=== PATIENT | male | born 1980 | race Caucasian/White ===

== ENCOUNTER 2017-09-05 17:03 | Emergency (ER) | payer OTHER ==
[~2017-09-05] VITALS: Ht 175.3 cm; Wt 68.0 kg
[~2017-09-05 17:03] MED LIST: ADV250/50 INH; LEVO750T25 PO; LIPA249C7 PO; MOMR NS; SAL50R IH; [UNRECOGNIZED DRUG - CODE] INH; [UNRECOGNIZED DRUG - CODE] PO; [UNRECOGNIZED DRUG - OTHER]
--- NOTE | 2017-09-05 17:09 | ER Report ---
History and Physical Time Seen By MD: 17:07 (ARACELY GUTIERREZ MD) HPI/ROS CHIEF COMPLAINT: right sided chest wall pain HISTORY OF PRESENT ILLNESS: Patient is a 37-year-old male with history of cystic fibrosis who presents to emergency department with sudden onset of right- sided chest wall pain. Patient states that he was doing some reading leaning forward when he returned to a reclining position he felt discomfort to the right chest wall. The pain is worse with motion and is reproducible to palpation. He denies any shortness of breath. Patient does have a pulse ox machine at home which showed a pulse rate of 92 bpm and a pulse ox of 92%. REVIEW OF SYSTEMS: Constitutional: No fever, no chills. Eyes: No discharge. ENT: No sore throat. Cardiovascular: Right-sided chest wall pain Respiratory: No cough, no shortness of breath. Gastrointestinal: No abdominal pain, no vomiting. Genitourinary: No hematuria. Musculoskeletal: No back pain. Skin: No rashes. Neurological: No headache. (ARACELY GUTIERREZ MD) Allergies: Coded Allergies: No Known Drug Allergies (Verified , 09/05/17) Home Meds Active Scripts Ciprofloxacin Hcl (CIPROFLOXACIN HCL) 750 Mg Tablet, 750 MG PO Q12H, #20 TAB 0 Refills Prov:UZAIR RHODES MD 09/05/17 Reported Medications Fluticasone Prop 50 Mcg Ns (FLONASE 50 MCG NS) 16 Gm Alborn.susp, 1 SPRAY NS BID , BOT 09/05/17 [Pulmizyme] No Conflict Check, 0 Refills 04/08/10 Salmeterol Xinaf/Fluticasone (Advair 250/50 Diskus) 250 Mcg/50 Mcg Inh, 1 PUFF INH BID, 0 Refills 1 PUFF 04/08/10 Amylase/Lipase/Protease (Creon 10 Capsule Ec) 249 Mg Capsule.dr, 249 MG PO WITH FOOD, 0 Refills 04/08/10 Tobramycin/Sodium Chloride (Bobby 300 Mg/5 Ml Solution) 300 Mg/5 Ml Ampul.neb., 300 MG INH, 0 Refills 04/08/10 Discontinued Reported Medications Levofloxacin (Levaquin) 750 Mg Tablet, 750 MG PO QDAY, #10 0 Refills 04/08/10 Mometasone Furoate (Nasonex) 17 Gm Alborn, 1 SPRAY NS BID, 0 Refills 04/08/10 Past Medical/Surgical History Past medical history significant for asthma, history of cystic fibrosis (ARACELY GUTIERREZ MD) Hx Substance Use Disorder: No Hx Alcohol Use: No (ARACELY GUTIERREZ MD) Constitutional Vital Sign - Last 24 Hours 09/05/17 09/05/17 09/05/17 09/05/17 17:11 17:30 18:00 18:00 Temp 98.8 Pulse 96 87 87 Resp 20 B/P (MAP) 136/91 131/90 (104) 134/75 (94) 134/75 (94) Pulse Ox 96 95 90 90 O2 Delivery Room Air 09/05/17 09/05/17 09/05/17 09/05/17 18:30 18:30 18:45 19:00 Pulse 91 91 91 97 B/P (MAP) 132/92 (105) 132/92 (105) 150/84 (106) Pulse Ox 91 91 92 (UZAIR RHODES MD) Physical Exam General Appearance: The patient is alert, has no immediate need for airway protection and no signs of toxicity. Eyes: Pupils equal and round no pallor or injection. ENT, Mouth: Mucous membranes are moist. Respiratory: There are no retractions, lungs are clear to auscultation. Cardiovascular: Regular rate and rhythm. [ ] Gastrointestinal: Abdomen is soft and non tender, no masses, bowel sounds normal. Neurological: Awake alert Skin: Warm and dry, no rashes. Musculoskeletal: Neck is supple non tender. Extremities are nontender, nonswollen and have full range of motion. (ARACELY GUTIERREZ MD) Medical Decision Making Data Points Result Diagram: 09/05/17 1710 09/05/17 1710 Laboratory Hematology Test 09/05/17 17:10 Red Blood Count 5.98 M/uL (4.00-5.60) Mean Corpuscular Volume 85.5 fL (80.0-96.0) Mean Corpuscular Hemoglobin 28.0 pg (26.0-33.0) Mean Corpuscular Hemoglobin Concent 32.8 g/dL (32.0-36.0) Red Cell Distribution Width 13.9 % (11.5-14.5) Mean Platelet Volume 8.2 fL (7.2-11.1) Neutrophils (%) (Auto) 79.8 % (39.4-72.5) Lymphocytes (%) (Auto) 10.6 % (17.6-49.6) Monocytes (%) (Auto) 8.1 % (4.1-12.4) Eosinophils (%) (Auto) 0.9 % (0.4-6.7) Basophils (%) (Auto) 0.6 % (0.3-1.4) Nucleated RBC Relative Count (auto) 0.0 /100WBC Neutrophils # (Auto) 16.9 K/uL (2.0-7.4) Lymphocytes # (Auto) 2.2 K/uL (1.3-3.6) Monocytes # (Auto) 1.7 K/uL (0.3-1.0) Eosinophils # (Auto) 0.2 K/uL (0.0-0.5) Basophils # (Auto) 0.1 K/uL (0.0-0.1) Nucleated RBC Absolute Count (auto) 0.01 K/uL Peripheral Blood Smear Yes Y/N Sodium Level 138 mmol/L (137-145) Potassium Level 4.1 mmol/L (3.5-5.0) Chloride Level 97 mmol/L (98-107) Carbon Dioxide Level 26 mmol/L (22-30) Blood Urea Nitrogen 17 mg/dl (9-21) Creatinine 1.00 mg/dl (0.66-1.25) Glomerular Filtration Rate Calc > 60.0 Random Glucose 106 mg/dl (75-110) Calcium Level 9.2 mg/dl (8.4-10.2) Total Bilirubin 0.3 mg/dl (0.2-1.3) Aspartate Amino Transf (AST/SGOT) 24 U/L (0-35) Alanine Aminotransferase (ALT/SGPT) 30 U/L (0-56) Alkaline Phosphatase 77 U/L (0-126) Total Protein 8.8 gm/dl (6.3-8.2) Albumin 4.4 g/dl (3.5-5.0) Chemistry Test 09/05/17 17:10 White Blood Count 21.2 k/uL (4.5-11.0) Red Blood Count 5.98 M/uL (4.00-5.60) Hemoglobin 16.8 g/dL (14.0-18.0) Hematocrit 51.1 % (42.0-52.0) Mean Corpuscular Volume 85.5 fL (80.0-96.0) Mean Corpuscular Hemoglobin 28.0 pg (26.0-33.0) Mean Corpuscular Hemoglobin Concent 32.8 g/dL (32.0-36.0) Red Cell Distribution Width 13.9 % (11.5-14.5) Platelet Count 556 K/uL (150-450) Mean Platelet Volume 8.2 fL (7.2-11.1) Neutrophils (%) (Auto) 79.8 % (39.4-72.5) Lymphocytes (%) (Auto) 10.6 % (17.6-49.6) Monocytes (%) (Auto) 8.1 % (4.1-12.4) Eosinophils (%) (Auto) 0.9 % (0.4-6.7) Basophils (%) (Auto) 0.6 % (0.3-1.4) Nucleated RBC Relative Count (auto) 0.0 /100WBC Neutrophils # (Auto) 16.9 K/uL (2.0-7.4) Lymphocytes # (Auto) 2.2 K/uL (1.3-3.6) Monocytes # (Auto) 1.7 K/uL (0.3-1.0) Eosinophils # (Auto) 0.2 K/uL (0.0-0.5) Basophils # (Auto) 0.1 K/uL (0.0-0.1) Nucleated RBC Absolute Count (auto) 0.01 K/uL Peripheral Blood Smear Yes Y/N Glomerular Filtration Rate Calc > 60.0 Calcium Level 9.2 mg/dl (8.4-10.2) Total Bilirubin 0.3 mg/dl (0.2-1.3) Aspartate Amino Transf (AST/SGOT) 24 U/L (0-35) Alanine Aminotransferase (ALT/SGPT) 30 U/L (0-56) Alkaline Phosphatase 77 U/L (0-126) Total Protein 8.8 gm/dl (6.3-8.2) Albumin 4.4 g/dl (3.5-5.0) (UZAIR RHODES MD) EKG/Imaging Imaging 2 VIEWS CHEST INDICATION: Right-sided chest pain. COMPARISON: 04/08/2010. FINDINGS: Cardiomediastinal silhouette and pulmonary vessels within normal limits. There are faint patchy interstitial changes seen in both lungs. The appearance of which are not significantly changed from the previous examination. This is most likely due to chronic interstitial disease. There may be minimal progression. There is no focal consolidation. There is no pneumothorax or pleural effusion. No nodule. Upper abdomen is unremarkable. No acute bony abnormality. IMPRESSION: 1. Underlying chronic interstitial changes which are mildly progressed. No focal consolidation. Report Dictated By: Simon Garduno at 09/05/2017 6:25 PM RIBS RIGHT INDICATION: Right chest pain.. COMPARISON: None Available. FINDINGS: 2 views of the right ribs show no discrete or displaced fracture. No bony lesion. The lungs show chronic interstitial changes as described on chest x -ray. Soft tissues are unremarkable otherwise. IMPRESSION: Normal right rib abnormality. Report Dictated By: Simon Garduno at 09/05/2017 6:28 PM (UZAIR RHODES MD) ED Course/Re-evaluation ED Course 09/05/2017 5:14:48 pm At this time will be to place an IV perform a chest x-ray and right-sided rib series. Toradol for pain Decision to Disposition Date: Sep 05, 2017 Decision to Disposition Time: 19:00 (ARACELY GUTIERREZ MD) ED Course Discussed this patient with Dr. Gutierrez at shift change and assumed care of the patient. Imaging done and did show some increased in the chronic interstitial changes. Cannot entirely rule out infectious process given his elevated white blood cell count. Will start Cipro 750mg twice a day and have him follow-up with his Cystic Fibrosis specialists. Ibuprofen to help with pain as the Toradol has significantly improved his pain. Decision to Disposition Date: Sep 05, 2017 Decision to Disposition Time: 19:10 (UZAIR RHODES MD) Depart Departure Latest Vital Signs Vital Signs Date Time Temp Pulse Resp B/P (MAP) Pulse Ox O2 Delivery O2 Flow Rate FiO2 09/05/17 19:00 97 150/84 (106) 09/05/17 18:45 92 09/05/17 17:11 98.8 20 Room Air (UZAIR RHODES MD) Impression: Primary Impression: Chest pain Additional Impression: Pneumonitis Condition: Improved Disposition: HOME OR SELF-CARE New Scripts Ciprofloxacin Hcl (CIPROFLOXACIN HCL) 750 Mg Tablet 750 MG PO Q12H, #20 TAB 0 Refills Prov: UZAIR RHODES MD 09/05/17 Patient Instructions: Chest Pain (ED), Pneumonitis (ED) Additional Instructions: Start Cipro 750mg twice a day. Take Ibuprofen 200mg over the counter tablets, take 4 tablets every 8 hours as needed for pain. Call and arrange follow-up with your regular doctors. Rest and increase fluid intake over the next few days. Problem Qualifiers Primary Impression: Chest pain Chest pain type: other chest pain Qualified Codes: R07.89 - Other chest pain ARACELY GUTIERREZ MD Sep 05, 2017 17:09 UZAIR RHODES MD Sep 05, 2017 18:24
[2017-09-05] MEDS ORDERED: FLUT16SP19 NS (17:11)
[2017-09-05] MEDS ORDERED: KETOROLAC 15 MG/ML VIAL IVP ONE (17:15)
[2017-09-05 17:35] LABS: PLATELET COUNT, AUTOMATED 556 K/uL (150-450)
--- NOTE | 2017-09-05 17:35 | EKG ---
FACILITY: [facility] - [place] PATIENT NAME: ALEXIS NG : [id number] MR: [id number] V: [id number] EXAM DATE: ORDERING PHYSICIAN: ARACELY MENARD TECHNOLOGIST: Test Reason : Blood Pressure : / mmHG Vent. Rate : 094 BPM Atrial Rate : 094 BPM P-R Int : 130 ms QRS Dur : 076 ms QT Int : 358 ms P-R-T Axes : 065 068 060 degrees QTc Int : 447 ms Normal sinus rhythm Normal ECG No previous ECGs available Confirmed by SHAI ARDON ([id number]) on 09/05/2017 7:18:54 PM Referred By: Confirmed By:SHAI ARDON
--- NOTE | 2017-09-05 18:31 | RADIOLOGY IMAGING REPORT ---
FACILITY: [facility] [place] PATIENT NAME: Torres Mancilla : 1980 MR: [id number] V: [id number] EXAM DATE: ORDERING PHYSICIAN: ARACELY MENARD TECHNOLOGIST: Location: [facility] Patient: Torres Mancilla : 1980 Visit/Account:[id number] Date of Sevice: 09/05/2017 2 VIEWS CHEST INDICATION: Right-sided chest pain. COMPARISON: 04/08/2010. FINDINGS: Cardiomediastinal silhouette and pulmonary vessels within normal limits. There are faint patchy interstitial changes seen in both lungs. The appearance of which are not signi ficantly changed from the previous examination. This is most likely due to chronic interstitial disea se. There may be minimal progression. There is no focal consolidation. There is no pneumothorax or pleural effusion. No nodule. Upper abdomen is unremarkable. No acute bony abnormality. IMPRESSION: 1. Underlying chronic interstitial changes which are mildly progressed. No focal consolidation. Report Dictated By: Simon Garduno at 09/05/2017 6:25 PM Report E-Signed By: Simon Garduno at 09/05/2017 6:28 PM WSN:[id number]
--- NOTE | 2017-09-05 18:35 | RADIOLOGY IMAGING REPORT ---
FACILITY: [facility] - [place], [place] PATIENT NAME: Torres Mancilla : 1980 MR: [id number] V: [id number] EXAM DATE: ORDERING PHYSICIAN: ARACELY MENARD TECHNOLOGIST: Location: [facility] [place] Patient: Torres Mancilla : 1980 Visit/Account:[id number] Date of Sevice: 09/05/2017 RIBS RIGHT INDICATION: Right chest pain.. COMPARISON: None Available. FINDINGS: 2 views of the right ribs show no discrete or displaced fracture. No bony lesion. The lungs show chronic interstitial changes as described on chest x-ray. Soft tissues are unremarkable otherwi se. IMPRESSION: Normal right rib abnormality. Report Dictated By: Simon Garduno at 09/05/2017 6:28 PM Report E-Signed By: Simon Garduno at 09/05/2017 6:30 PM WSN:[id number]
[2017-09-05] MEDS ORDERED: CIPROFLOXACIN 500 MG TAB PO ONE (19:10)
[2017-09-05] MEDS ORDERED: CIPR750T84 PO (19:12)
[2017-09-05 19:15] VITALS: BP 127/97
== END 2017-09-05 19:19 | disposition home or self-care (01) ==
LOC: ER 17:06
DX: J18.9 Pneumonia, unspecified organism (principal)
CPT/HCPCS: 71046; 71100; 85025; 93005; 96374; 99284; J1885; 82040; 82247; 82310; 82374; 82435; 82565; 82947; 84075; 84132; 84155; 84295; 84450; 84460; 84520

== ENCOUNTER 2017-10-23 09:00 | Outpatient (RCR) | payer OTHER ==
--- NOTE | 2017-08-03 11:27 | SPEECH INITIAL EVALUATION ---
VOCAL PRODUCTION and DYSPHAGIA EVALUATION REPORT NAME: Sunil Mancilla EVALUATION DATE: 07-30-17 DATE OF : 1980, 37yrs DIAGNOSIS: Dysphagia and Speech/Vocal deficits EXAMINER: Marie Vizcarra MS, [facility]-[employer] PHYSICIAN: Shaina Todd M.D. History The patient is a 37 year old male seen by speech pathology for dysphagia and voice assessment. 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 He is now experiencing symptoms of dysphagia and vocal deficits with speech. Past medical history is positive for cystic fibrosis. VOICE Breath Support: Below expect for patients age -Maximum Phonation Time: average of 4 seconds for sustained vowel production with mid/high/low pitch Pitch: Pt participated in vocal testing that included pitch variation. Pitch variation was adequate and well controlled with audible variation between low/ mid/high productions. Vocal Quality: Mildly hoarse Volume: Volume largely functional with the patient able to demonstrate adequate modification of functional volume in quiet and loud settings . Average of 70db as well as low and mid volume variations with consistent vocal quality. S/Z Ratio: WNL Self-Perceptual Measures and Functional Communication Voice Handicap Index (VHI) During the evaluation, Mr. Fajardo completed a VHI that is based on a 4pt scale to indicate vocal changes and the effects of these changes on ones life. The VHI is composed of three categories; physical, functional, and emotional. A score of 18 or more reflects a significant impact on quality of life. Results: Physical= 19 Functional=12 Emotional=13 Total score=44 On a scale of Normal to Severe, Mr Mancilla scored his voice as Moderate Handicap on the VHI on the day of the evaluation and reported that his is a typical day of vocal function. The patient was most concerned with his voice sounding creaky and dry, people having difficulty understanding him, he uses a great deal of effort to speak, and my voice problem makes me feel handicapped. SPEECH Left lingual numbness and overall lingual discoordination during speech result in deficits in vowel and consonant production including speech sound distortion. No omissions or substitutions were recorded. The patient reports he is very aware of these speech sound distortions and participates less in verbal communication with others as he feels embarrassed of his speech. Pt was stimulable for decreased distortion of speech sounds with sounds in isolation. Sounds at word level were less stimulable as were sounds in conversation. Specific speech sounds noted to have errors include /sh/s/l/o/k/ t /d/t/. FUNCTIONAL COMMUNICATION The patients overall functional communication shows moderate deficits 2nd to voice and speech deficits. His functional communication is impacted on a daily basis at home, work and in the community. DYSPHAGIA Oral The patient is on a dysphagia 2 diet per recommendation following MBS. Post operative oral dysphagia symptoms persist including - L side posterior lingual numbness -L side lingual deviation -Lingual discoordination for speech and swallow -Pain with mastication L side from jaw to shoulder. Pt reports he was told this is d/t post operative nerve damage. Pain reported as 3 of 10 today but pt reports it is frequently 5 or 6 -Modified Diet: Pt compensates for oral dysphagia with small bites, soft foods, chopped foods - The patient reports no change to his sense of taste Pharyngeal The patient reports moderate s/s of pharyngeal dysphagia. A previous MBS showed aspiration of thin liquids and a nectar thick liquid and dysphagia 2 diet was recommended at that time. He reports his dysphagia symptoms have improved somewhat and he now uses thickened liquids only sometimes. He uses positional compensatory techniques with liquids swallow to reduce risk including head tilt to the left. Pt demonstrated this technique without cueing and confirmed that he uses it regularly. The patient . Symptoms include: -delayed initiation of swallow -witnessed aspiration of liquids during MBS -he demonstrates a strong cough and reports a good reflexive cough when aspiration occurs Verbal and written education provided at time of assessment for safe swallow precautions as well as physiology/anatomy of health or dysphasic swallow. Food Liquid Trials Liquids: pass with compensatory techniques as described above Foods: pass with compensatory techniques as described above SUMMARY Mr. Mancilla presents with deficits in voice production and articulation as well as oral and pharyngeal stage dysphagia. Speech therapy services are recommended and are medically necessary for this patient to return to prior level of functioning with oral communication and to decrease risk of aspiration , malnutrition, dehydration 2nd to oral and pharyngeal stage dysphagia. Please see above for more detail. Recommendations ST 2wk12 to address above described concerns. Prognisis: Very Good. Pt general health is good, he is young and is motivated to return to [facility] POC Short Term Goals 1. Pt will report a score of between 0-17 on the Voice Handicapp Index (VHI) to demonstrate no or mild vocal handicap and a low impact on daily life. Current score is 44. 2. The patient will demonstrate no aspiration of thin liquids on a repeat MBS 3. The patient will return to [facility] with solids and liquids Mattress Specialist Goal The patient will return to prior level of functional communication and diet Thank you for this referral. Please call [phone] Marei Vizcarra M.S., CCC-COAL GETTER Physician Signature Date MTDD
--- NOTE | 2017-09-03 15:02 | SLP PLAN OF CARE ---
Progress Note and POC Update NAME: Sunil Mancilla EVALUATION DATE: 09-02-17 DATE OF : 1980, 37yrs DIAGNOSIS: Dysphagia and Speech/Vocal deficits EXAMINER: Marie Vizcarra MS, [facility]-[employer] PHYSICIAN: Shaina Todd M.D. The patient attended initial speech therapy evaluation on 07-30-17. ST 2wk12 was recommended at that time. The patient did not return to ST for over a month until 09-02-17 as he was awaiting approval of coverage from his medical insurance carrier. The patient reports some improvement to voice and swallow since initial eval including estimated return of vocal function to 75% of plof. Pt completed a maximum phonation task with an average of 4 seconds (norm=25-35 seconds) which demonstrates no change from initial eval. He is no longer using liquid thickener though he continues to experience s/s of aspiration (excessive coughing, SOB) at least 1x/meal. Pt completed a modified version of the Communication Confidence Rating Scale for Aphasia (CCRSA). This is a 6 question patient rated numeric scale to assist with assessing a patients confidence in their communicative ability. His lowest rated scores are as follows: "How confident are you about your ability to speak on the telephone?" (60/100) and "How confident are you that people understand you when you talk?"(50/100). Updated POC Short term goals: 1. Pt will report a score of between 0-17 on the Voice Handicapp Index (VHI) to demonstrate no or mild vocal handicap and a low impact on daily life. Current score is 44. 2. The patient will demonstrate no aspiration of thin liquids on a repeat MBS 3. The patient will return to [place] with solids and liquids without s/s of aspiration. 4. The patient will complete and oral motor program and utilize techniques (e.g., exaggerated speech, slowing down speech, etc.) to achieve accurate articulation within connected speech at approximately 98% accuracy as determined by performance on the Sutton-Charlaemann Test of Articulation Competence : (subtest) Sentence Artuculation Test. SUMMARY Continue Current POC. RECOMMENDATION Patient would benefit from skilled ST 2wk12 to address above POC Thank you for referring this patient to [facility], Speech- Language Pathology. Please call [phone] to contact the [employer]MER [employer]. Marie Silverio M.S., CCC-[employer] Physician Signature Date MTDD
[~2017-10-23 09:00] MED LIST changes: +CIPR750T84 PO; +FLUT16SP19 NS
--- NOTE | 2017-10-23 14:11 | SLP PLAN OF CARE ---
SPEECH PATHOLOGY PROGRESS REPORT Progress Note Date: 10-22-2017 Clinician: Marie Vizcarra M.S., CCC-[employer], Dianne Varner, [facility] [place] Patient: Sunil Mancilla : 1980 The patient has been attending ST at [facility] 2x/wk since 09/02/2017. He missed two weeks of tx due to a pulmonary episode. The patient reported that he received speech therapy during that hospitalization. Current POC The patient has been working on the following short term goals: Short term goals: 1. Pt will report a score of between 0-17 on the Voice Handicapp Index (VHI) to demonstrate no or mild vocal handicap and a low impact on daily life. Current score is 44. 2. The patient will demonstrate no aspiration of thin liquids on a repeat MBS. 3. The patient will return to [place] with solids and liquids without s/s of aspiration. 4. The patient will complete and oral motor program and utilize techniques (e.g., exaggerated speech, slowing down speech, etc.) to achieve accurate articulation within connected speech at approximately 98% accuracy as determined by performance on the Sutton-Charlaemann Test of Articulation Competence : (subtest) Sentence Artuculation Test. SUMMARY Continue Current POC. The patient is progressing towards treatment goals. The patient has been completing pharyngeal, laryngeal, and lingual exercises given EMST via [employer] protocol. The patient reports that he completes some of these exercises at home, but not consistently. The patient also completes sensory stimulation with hot and cold temperatures both orally and externally during each session and at home. The patient has not reported any recent choking episodes at home, but has expressed episodes of lingual weakness. Increased stimulation and exercise to lingual muscles will be addressed in tx and patient will be provided with these additional exercises to practice in his home program. RECOMMENDATION Patient would benefit from continued ST to address above POC Thank you for referring this patient to [facility], Speech- Language Pathology. Please call [phone] to contact the HE[employer]. Respectfully, Marie Vizcarra M.S., CCC-[employer], Dianne Varner, [facility] [place] Physician Signature Date MTDD
== END 2017-10-28 ==
LOC: ST 09:00
PROVIDERS: ATTEND Internal Medicine Critical Care Medicine
DX: E84.9 Cystic fibrosis, unspecified (principal); R49.8 Other voice and resonance disorders; R13.11 Dysphagia, oral phase; R13.13 Dysphagia, pharyngeal phase
CPT/HCPCS: 92524

== ENCOUNTER 2018-01-15 09:00 | Outpatient (RCR) | payer OTHER ==
--- NOTE | 2017-10-29 11:15 | SLP PLAN OF CARE ---
SPEECH PATHOLOGY PROGRESS REPORT Progress Note Date: 10-29-2017 Clinician: Marie Vizcarra M.S., CCC-BUILDING OPERATOR, Dianne Varner, [facility] Patient: Sunil Mancilla : 1980 The patient has been attending ST at [facility] 2x/wk since 09/02/2017. He missed two weeks of tx due to a pulmonary episode. The patient reported that he received speech therapy during that hospitalization. Current POC The patient has been working on the following short term goals: Short term goals: 1. Pt will report a score of between 0-17 on the Voice Handicapp Index (VHI) to demonstrate no or mild vocal handicap and a low impact on daily life. Current score is 44. 2. The patient will demonstrate no aspiration of thin liquids on a repeat MBS. 3. The patient will return to [facility] with solids and liquids without s/s of aspiration. 4. The patient will complete and oral motor program and utilize techniques (e.g., exaggerated speech, slowing down speech, etc.) to achieve accurate articulation within connected speech at approximately 98% accuracy as determined by performance on the Sutton-Charlaemann Test of Articulation Competence : (subtest) Sentence Artuculation Test. SUMMARY Continue Current POC. The patient is progressing towards treatment goals. The patient has been completing pharyngeal, laryngeal, and lingual exercises given EMST via [employer] protocol. The patient reports that he completes some of these exercises at home, but not consistently. The patient also completes sensory stimulation with hot and cold temperatures both orally and externally during each session and at home. The patient has not reported any recent choking episodes at home, but has expressed episodes of lingual weakness. Increased stimulation and exercise to lingual muscles will be addressed in tx and patient will be provided with these additional exercises to practice in his home program. RECOMMENDATION Patient would benefit from continued ST to address above POC Thank you for [place] [facility]. Please call [phone] to contact the BUILDING OPERATOR. Respectfully, Marie Vizcarra M.S., CCC-BUILDING OPERATOR, Aarti Varner., [facility] Physician Signature Date MTDD
--- NOTE | 2017-12-20 17:27 | SLP PLAN OF CARE ---
SPEECH PATHOLOGY PROGRESS REPORT Progress Note Date: 12-20-2017 Clinician: Alexnadra Neal M.S., [facility]-TEAMSITE DEVELOPER Patient: Sunil Mancilla : 1980 The patient has been attending ST at [facility] 2x/wk since 09/02/2017, with plan of care updated on 10/29/2017. He missed one treatment session since previous reporting period due to an unspecified schedule conflict. Current POC The patient has been working on the following short term goals: 1. Pt will report a score of between 0-17 on the Voice Handicapp Index (VHI) to demonstrate no or mild vocal handicap and a low impact on daily life. Pt reported a score of 45, which remains consistent w/ previous score of 44 and indicative of moderate vocal impairment. Pt subjectively described his voice as weak and sometimes pathetic with perception of breathiness, increased pitch , and decreased intensity. Pt indicated that people almost always have difficulty understanding him in a noisy room, he frequently avoids groups of people, his voice is highly variable throughout the day, his voice worsens in the evenings, his voice problem results in annoyance, and his voice problem is highly upsetting. 2. The patient will demonstrate no aspiration of thin liquids on a repeat MBS. Will re-analyze. 3. The patient will return to [facility] with solids and liquids without s/s of aspiration. Pt reports coughing 1-2x daily w/ thin liquids. This is reduced vs status at SOC. The EAT-10 was re-administered with a decrease in severity score from 23 to 9. Improvements were noted in pts perception of effort required to swallow solids and pills, pleasure with eating, frequency of coughing, and stress related to PO intake. Pt tolerates thin liquid trials during the majority of tx sessions, with cough response noted during 5-10% of opportunities. 4. The patient will complete and oral motor program and utilize techniques (e.g. , exaggerated speech, slowing down speech, etc.) to achieve accurate articulation within connected speech at approximately 98% accuracy as determined by performance on the Sutton-Charlaemann Test of Articulation Competence : (subtest) Sentence Artuculation Test. Pt reports a decrease in speech errors during conversation outside of tx. TEAMSITE DEVELOPER has not noted speech errors in tx setting over at least 6 consecutive tx sessions. Pt reports rare participation in home lingual exercise program, but is agreeable to increasing frequency. SUMMARY Continue Current POC. The patient is progressing towards treatment goals, and may benefit from an increased emphasis on vocal deficits. Notable improvements have been observed in swallow status. The patient has been completing pharyngeal , laryngeal, and lingual exercises given EMST via [employer] protocol. The patient continues to report inconsistent completion of home exercise program, including sensory stimulation with hot and cold temperatures both orally and externally. The patient has reported decreased frequency of coughing episodes at home, and has also exhibited decreased frequency during structured tx sessions. RECOMMENDATIONS Patient would benefit from continued ST to address above POC. Thank you for referring this patient to [facility] [place], Speech- Language Pathology. Please call [phone] to contact the TEAMSITE DEVELOPER. Respectfully, Alexandra Neal M.S., [facility] DEVELOPER Physician Signature Date [*] MTDD
--- NOTE | 2017-12-25 14:23 | SLP PLAN OF CARE ---
ADDENDUM TO PROGRESS REPORT originally submitted 12-25-2017 SPEECH PATHOLOGY PROGRESS REPORT Progress Note Date: 12-25-2017 Patient: Sunil Mancilla : 1980 Physician: Shaina Todd MD Clinician: Marie Vizcarra M.S., [facility]-CATHODE BUILDER, Caroline Contreras B.A., [facility] Addendum to progress report originally submitted on 12-20-2017 in order to clarify and update plan of care in response to patient progress and to request a follow-up Modified Barium Swallow study. Updated Plan of Care 1. Pt will participate in a 12wk vocal exercise program to decrease laryngeal tension and report a score of between 0-17 (current score: 45) on the Voice Handicap Index (VHI) to demonstrate no or mild vocal handicap and a low impact on daily life. 2. The patient will demonstrate no aspiration of thin liquids on a repeat MBS. 3. The patient will complete an oral motor program to address left side lingual weakness to improve intelligibility during prolonged periods of conversational speech, as reported by the patient. 4. Pt will participate in abdominal breathing exercises to improve respiratory support during phonation and perform sustained phonation for 10+ seconds over 5 sessions. 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 Vocal dysfunction may be the result of a benign tumor removal and/or chronic cough due to Cystic Fibrosis. Patient reports notable improvements in his vocal quality during treatment, particularly over the last 2 sessions, supporting the continued implementation of a vocal exercise program and additional exercises to improve breath support for speech. The patient has reported decreased frequency of coughing episodes at home, however episodes continue to persist during structured Tx sessions. In response to patient reported decrease in dysphagia severity on the EAT-10 ( from 23 at SOC to 9 on 18) a repeat MBS is recommended at this time to advice treatment strategy and dietary modification recommendations. RECOMMENDATIONS 1. Follow up Modified Barium Swallow 2. Patient would benefit from continued ST 2wk12 to address above POC. Thank you for referring this patient to [facility], Speech- Language Pathology. Please call [phone] to contact the CATHODE BUILDER. Respectfully, Marie Vizcarra M.S, [facility]ATH[facility] BUILDER Physician Signature Date MTDD
== END 2018-01-15 18:00 | disposition home or self-care (01) ==
LOC: ST 09:00
PROVIDERS: ATTEND Internal Medicine Critical Care Medicine
DX: E84.9 Cystic fibrosis, unspecified (principal); R49.8 Other voice and resonance disorders; R13.11 Dysphagia, oral phase; R13.13 Dysphagia, pharyngeal phase; K86.81 Exocrine pancreatic insufficiency